=== PATIENT | female | born 1995 | race Caucasian/White ===

== ENCOUNTER 2021-09-21 11:42 | Emergency (ER) | payer MEDICAID, SELFPAY ==
[2021-09-21 11:45] VITALS: BP 103/63; PULSE 90; RESP 16; TEMP 36.1; O2SAT 99
--- NOTE | 2021-09-21 12:07 | W.ED.GENAD ---
Discharge Plan Disposition Patient Disposition: HOME Condition: Stable Discharge Details Clinical Impression: Lesion of lip Primary Care Provider: None,None ED Provider: Soraida Bell Home Meds and New Rx's Prescriptions: New valacyclovir [Valtrex] 500 mg tablet 500 mg PO BID Qty: 6 3RF Continued dextroamphetamine-amphetamine [Adderall] 30 mg Tablet 30 mg PO BID 0RF methadone 10 mg/mL Concentrate 100 mg PO DAILY 0RF gabapentin 800 mg Tablet 800 mg PO QID 0RF Discharge Instructions Additional Instructions: Take the Valtrex as prescribed for 3 days I given you several refills It is contagious please have the lesions on your lips, it is spread through contact throat do not share drinks, saliva, until lesions have healed completely Discharge Data Discharge Date/Time-TO BE ENTERED AT DEPARTURE: 09/21/21 12:30 Medical Decision Making Patient appears well, she is treated for likely herpes simplex virus with acyclovir She is given 3 refills She will follow up with her primary care physician and return earlier should you have new or worsening complaint Medical Records Medical records reviewed: Yes I reviewed the patient's medical records. HPI General Date/Time Provider Initiated Documentation: 09/21/21 12:04. HPI Narrative: This 26-year-old female presents with report of lesions p.o. on lower lip. She states she has been for several years. In the past she is taking acyclovir. She denies any difficulty swallowing or dental pain associated. She denies any fever or chills. She denies any chance of Related Data Home Medications Medication Instructions Recorded Confirmed dextroamphetamine-amphetamine 30 30 mg PO BID 09/21/21 09/21/21 mg tablet (Adderall) gabapentin 800 mg tablet 800 mg PO QID 09/21/21 09/21/21 methadone 10 mg/mL oral concentrate 100 mg PO DAILY 09/21/21 09/21/21 valacyclovir 500 mg tablet 500 mg PO BID #6 tab 09/21/21 (Valtrex) Previous Rx's Medication Instructions Recorded valacyclovir 500 mg tablet 500 mg PO BID #6 tab 09/21/21 (Valtrex) Allergies Allergy/AdvReac Type Severity Reaction Status Date / Time No Known Allergies Allergy Unverified 09/21/21 11:51 General Stated Complaint: DentalOral ALLYN: 4 Review of Systems Narrative: Review of systems obtained x3 and negative aside from medication HPI PFSH All Active Problems (Updated 09/21/21 @ 12:12 by MARSHA Lauren) Lesion of lip (Acute) Social History Smoking/Tobacco Use Status: Current every day Tobacco Type: cigarettes Smoking risk assessment performed?: Yes Alcohol Intake: former Drug use: Current Sobriety Substance use type: heroin Do you feel safe at home: Yes Do you feel safe in your relationship?: Yes Exam Const General: cooperative, comfortable and no acute distress [facility] Nose image: 1. 3 vesicles noted, no surrounding erythema, oropharynx patent, uvula midline Course Vital Signs Vital signs: Vital Signs Temperature 36.1 C L 09/21/21 11:45 Pulse 90 09/21/21 11:45 Respiratory Rate 16 09/21/21 11:45 Blood Pressure 103/63 09/21/21 11:45 Pulse Oximetry 99 09/21/21 11:45 Temperature 36.1 C L 09/21/21 11:45 Temperature Source Skin 09/21/21 11:45 Pulse 90 09/21/21 11:45 Respiratory Rate 16 09/21/21 11:45 Respiratory Effort 09/21/21 11:53 Blood Pressure 103/63 09/21/21 11:45 Blood Pressure Position Sitting 09/21/21 11:45 Pulse Oximetry 99 09/21/21 11:45 Pain Level 6 09/21/21 11:45
== END 2021-09-21 12:30 | disposition home or self-care (01) ==
PROVIDERS: Emergency Provider Physician Assistant
DX: B00.1 Herpesviral vesicular dermatitis (principal); K13.0 Diseases of lips
CPT/HCPCS: 99283